=== PATIENT | female | born 1960 | race Caucasian/White ===

== ENCOUNTER 2022-07-29 14:45 | Outpatient (RCR) | payer OTHER, SELFPAY | END 2022-09-20 15:27 | disposition home or self-care (01) | PROVIDERS: Visit Provider Family Medicine | DX: M53.3 Sacrococcygeal disorders, not elsewhere classified (principal); Z51.89 Encounter for other specified aftercare | CPT/HCPCS: 97110; 97162 ==

== ENCOUNTER 2022-12-23 07:21 | Day surgery (SDC) | payer OTHER, SELFPAY ==
[2022-12-23] VITALS (8 sets, daily range): BP systolic 111–139; BP diastolic 67–79; PULSE 53–77; RESP 16–18; TEMP 36.6–37.1; O2SAT 92–99; BMI 19.1
[2022-12-23] MEDS: LACTATED RINGERS 1000 ML 1,000 ML 100 ML IV (06:45)
[2022-12-23] MEDS: SODIUM CHLORIDE 0.9 % (FLUSH) 10 ML SYRINGE IVF (08:01)
--- NOTE | 2022-12-23 09:00 | CRLHL7_ITS ---
For Patients: As a result of the Cures Act, medical imaging exams and procedure reports are released immediately into your electronic medical record. You may view this report before your referring provider. If you have questions, please contact your health care provider. Indication: Right 1st MPJ Fusion, Hammertoe 4th Technique: Three fluoroscopic images of the right foot. Fluoroscopic time 2.2 seconds. IMPRESSION: Fluoroscopic guidance for 4th hammertoe correction and 1st MTP fusion. Dictated by Hans Sue MD @ 12/24/2022 12:18:51 PM (Electronically Signed)
[2022-12-23] MEDS: BUPIVACAINE 0.5% 30 ML INJECTION (11:10)
--- NOTE | 2022-12-23 13:21 | SUR.PHASEII ---
Pts o2 sats dropping to 89% encouraged cough and deep breath but pt very sleepy 02 placed via nc at 3l/min
--- NOTE | 2022-12-23 14:52 | SUR.PHASEII ---
PT here for crutch training.
--- NOTE | 2022-12-27 08:31 | PM.PROC ---
Procedure Note Date Seen: 12/23/22 Date of procedure: 12/23/22 Will [facility] bill your pro fee for this procedure?: No Pre-op diagnosis: 1. Hallux valgus with bunion right 2. Hammertoe 4th digit right Post-op diagnosis: same Procedure: 1. First MPJ fusion right 2. Hammertoe correction 4th digit right Procedure Description: Hemostasis: Ankle pneumatic tourniquet 250 mm Hg Estimated blood loss: Less than 10 mL Materials: [employer] 1st MPJ fusion plate x1, 3.0mm locking cortical screws times 5 and 3.0mm nonlocking screw times 1, 3.0 mm cannulated headless screw x1, 0.045 smooth K-wire x1. Complications: None apparent Indication for surgery: Patient was seen in clinic for ongoing recurrent bunion and hammertoe pain. She has elected to have surgical correction. Reviewed the procedure, recovery, expectations potential complications. They include but not limited to: To wound healing, infection, nonunion, recurrence, nerve injury, hardware failure, deep venous thrombosis, pulmonary embolism, . She understands risks written consent was obtained. Site was marked. Procedure in detail: Patient brought in the operating room placed supine position the table. IV sedation was initiated local anesthetic injected into the right foot. She was prepped and draped in sterile fashion. Standard time-out protocol followed. The right foot was exsanguinated the tourniquet inflated. Dorsomedial curvilinear incision was made following the previous bunion incision. Blunt dissection was carried down to the joint capsule where a linear capsular incision was made. Capsular and periosteal tissues reflected away from the base of the proximal phalanx and head of the 1st metatarsal. The retained screw was removed without incident. Guide pin was placed the 1st metatarsal head and a 18 mm Reamer was used to remove the cartilage and subchondral bone from the metatarsal head. Guide pin was removed and placed in the base of the proximal phalanx of the corresponding 18 mm Reamer was used to remove cartilage and subchondral bone. Area was irrigated with normal sterile saline. Opposing fusion sites were fenestrated with K-wire. Weightbearing was simulated with metal lid and the hallux was placed in a perfect rectus position. K-wire was placed across the fusion site and was checked under both C-arm and clinically found to be optimal. Cannulated 3.0 mm headless screw was placed from distal medial to proximal lateral across the fusion site. Excellent compression was noted. Dorsal 6 hole plate was then applied with 3 locking screws distal and 2 locking screws and a nonlocking screw proximal. All Guide pins removed and the fusion site was remodeled with a rotary bur. Final C-arm images confirmed excellent position. Wound was thoroughly irrigated normal sterile saline. Joint capsule repaired with 3-0 Vicryl. Subcutaneous tissues repaired with 4-0 Monocryl and skin closed with 4-0 Prolene. Linear incision made over the PIPJ 4th toe. Incision carried down through skin subcutaneous tissues. Transverse incision made through the extensor tendon and joint capsule. Mediolateral collateral ligaments released. Head of the proximal phalanx was resected with a oscillating saw. 0.045 smooth K-wire was introduced into the base of the middle phalanx and driven out through the tip of the toe. Arthroplasty site held in rectus position in the K-wire drilled retrogradely back into the proximal phalanx. C-arm confirmed position. We irrigated with normal sterile saline. Extensor tendon repaired with 4-0 Vicryl. Skin closed with 4-0 Prolene. K-wire was bent cut and capped. Sterile dressing was then applied. Tourniquet was released and normal capillary fill time returned all digits. Patient was transferred from OR to PACU with vital signs stable and vascular status intact the right foot. Both written and verbal postop instructions given. The be discharged per Anesthesia. She is given oxycodone for pain. She will follow-up in 3 days. Anesthesia: MAC and local Estimated blood loss (mL): 2 Condition: stable Disposition: same day
== END 2022-12-23 14:54 | disposition home or self-care (01) ==
PROVIDERS: PCP Family Medicine; Visit Provider Podiatrist
PROC: (CPT 28740; principal; 2022-12-23 09:00)
PROC: (CPT 28285; 2022-12-23 09:00)
DX: M20.11 Hallux valgus (acquired), right foot (principal); M20.41 Other hammer toe(s) (acquired), right foot; M21.611 Bunion of right foot
CPT/HCPCS: 28285; 28750; 73620; 73630; 76000; 97116; 97161; A4580; C1713; J0665; J1100; J2250; J2405; J2704; J3010; J7120

== ENCOUNTER 2023-06-19 14:31 | Outpatient (RCR) | payer OTHER, SELFPAY | END 2023-10-17 23:59 | disposition home or self-care (01) | PROVIDERS: PCP Family Medicine; Visit Provider Family Medicine | DX: Z53.20 Procedure and treatment not carried out because of patient's decision for unspecified reasons (principal) ==

== ENCOUNTER 2023-09-17 16:00 | Outpatient (RCR) | payer OTHER, SELFPAY | END 2023-09-17 17:02 | disposition home or self-care (01) | PROVIDERS: PCP Family Medicine; Visit Provider Orthopaedic Surgery | DX: M75.101 Unspecified rotator cuff tear or rupture of right shoulder, not specified as traumatic (principal); M75.21 Bicipital tendinitis, right shoulder; M19.011 Primary osteoarthritis, right shoulder; M75.41 Impingement syndrome of right shoulder; M25.511 Pain in right shoulder; M62.81 Muscle weakness (generalized); Z51.89 Encounter for other specified aftercare | CPT/HCPCS: 97110; 97140; 97161; 97535 ==